=== PATIENT | male | born 1975 | race Two or more races ===

== ENCOUNTER 2024-01-17 11:04 | Emergency (ER) | payer OTHER ==
[~2024-01-17] VITALS: Ht 180.3 cm; Wt 68.0 kg
[2024-01-17 12:20] VITALS: BP 145/85; PULSE 75; RESP 18; TEMP 98.8; O2SAT 96
== END 2024-01-17 13:18 | disposition home or self-care (01) ==
LOC: ER 11:04
DX: S93.492A Sprain of other ligament of left ankle, initial encounter (principal); X50.1XXA Overexertion from prolonged static or awkward postures, initial encounter; Y93.89 Activity, other specified; Y92.89 Other specified places as the place of occurrence of the external cause; Y99.8 Other external cause status
CPT/HCPCS: 73610